=== PATIENT | female | born 1985 | race Two or more races ===

== ENCOUNTER 2016-12-23 08:39 | Emergency (ER) | payer MEDICAID ==
[~2016-12-23] VITALS: Ht 152.4 cm; Wt 55.0 kg
[2016-12-23 08:42] VITALS: BP 134/75
[2016-12-23] MEDS ORDERED: ALBUTEROL/IPRATROPIUM 2.5MG/0.5MG, 3 ML ONE (09:47)
[2016-12-23] MEDS ORDERED: ALBUTEROL/IPRATROPIUM 2.5MG/0.5MG, 3 ML NPPB ONE (10:00)
== END 2016-12-23 10:53 | disposition home or self-care (01) ==
LOC: ED 10:41
DX: B96.89 Other specified bacterial agents as the cause of diseases classified elsewhere (principal); J20.8 Acute bronchitis due to other specified organisms
CPT/HCPCS: 71020; 93005; 94640; 99284; J7620

== ENCOUNTER 2018-07-24 07:10 | Emergency (ER) | payer SELFPAY ==
[~2018-07-24] VITALS: Ht 152.4 cm; Wt 48.9 kg
--- NOTE | 2018-07-24 08:00 | NUR ---
PT PRESENTED TO ED WITH RASH ON VAGINAL AREA X 3 DAYS. PT STATED SHE HAD USED A TAMPON FROM [facility] AND DEVELOPED THIS RASH. PT [id number]&OX4. PT PLACED IN ROOM AND PLACED IN GOWN. ASSESSMENT COMPLETED. AWAITING MD. CALL LIGHT IN REACH
--- NOTE | 2018-07-24 08:45 | NUR ---
PELVIC EXAM PERFORMED BY PA AND RN ASSISTED. PT TOLERATED WELL.
[2018-07-24] MEDS ORDERED: FAMOTIDINE 20 MG TABLET PO ONE (09:00)
[2018-07-24] MEDS ORDERED: DIPHENHYDRAMINE 25 MG CAPSULE PO ONE (09:00)
[2018-07-24] MEDS ORDERED: FAMOTIDINE 20 MG TABLET ONE (09:05)
[2018-07-24] MEDS ORDERED: DIPHENHYDRAMINE 50 MG CAPSULE ONE (09:05)
[2018-07-24 09:42] VITALS: BP 137/76
== END 2018-07-24 09:43 | disposition home or self-care (01) ==
LOC: ED 09:37
DX: L23.5 Allergic contact dermatitis due to other chemical products (principal)
CPT/HCPCS: 99284; J7512; Q0163